=== PATIENT | female | born 1985 | race Caucasian/White ===

== ENCOUNTER 2016-04-26 18:55 | Emergency (ER) | payer OTHER ==
--- NOTE | 2016-04-26 21:48 | RAD ---
Name: EARL SILVA Exam: Two-view chest Comparison: None Clinical history: Cough Findings: 2 views of the chest are submitted. The heart mediastinum and hilar structures are within normal limits. There is no failure, infiltrate, pleural effusion or pneumothorax. Regional skeleton is within normal limits. The gallbladder is surgically absent. Impression: No acute cardiopulmonary process
== END 2016-04-26 22:13 | disposition home or self-care (01) ==
LOC: ED 18:55
DX: J11.1 Influenza due to unidentified influenza virus with other respiratory manifestations (principal); E66.9 Obesity, unspecified